=== PATIENT | female | born 1995 | race Asian ===

== ENCOUNTER 2018-03-24 09:07 | Inpatient (IN) | payer BC, OTHER ==
[~2018-03-24] VITALS: Ht 157.5 cm; Wt 42.7 kg
[2018-03-24 09:25] LABS: BASOPHILS # (AUTO) 0.03 x10^3/uL (0-0.1); BASOPHILS % (AUTO) 0 % (0-1); EOSINOPHILS # (AUTO) 0.05 x10^3/uL (0-0.4); EOSINOPHILS % (AUTO) 1 % (1-7); LYMPHOCYTES # (AUTO) 2.59 x10^3/uL (1-3.4); LYMPHOCYTES % (AUTO) 37 % (22-44); MD NO; MEAN CORPUSCULAR HEMOGLOBIN 30.9 pg (27.0-34.8); MEAN CORPUSCULAR HGB CONC 34.6 g/dL (32.4-35.8); MEAN CORPUSCULAR VOLUME 89.2 fL (80-100); MEAN PLATELET VOLUME 8.7 fL (7.4-10.4); MONOCYTES # (AUTO) 0.22 x10^3/uL (0.2-0.8); MONOCYTES % (AUTO) 3 % (2-9); NEUTROPHILS % (AUTO) 59 % (42-75); PLATELET COUNT 325 x10^3/uL (130-400); RED BLOOD COUNT 5.41 x10^6/uL (3.82-5.3); RED CELL DISTRIBUTION WIDTH 12.6 % (9.6-15.2)
[2018-03-24 09:41] LABS: ALANINE AMINOTRANSFERASE 22 U/L (12-78); ALBUMIN 4.4 g/dL (3.4-5.0); ANION GAP 8 mmol/L (5-15); CALCIUM 8.9 mg/dL (8.5-10.1); CHLORIDE 108 mmol/L (98-107); SALICYLATE LEVEL < 1.7 mg/dL (2.8-20.0)
[2018-03-24 09:42] LABS: ACETAMINOPHEN < 2 mcg/mL (10-30)
[2018-03-24 09:45] LABS: ALKALINE PHOSPHATASE 50 U/L (45-117); BILIRUBIN,TOTAL 0.7 mg/dL (0.2-1.0); TOTAL PROTEIN 8.7 g/dL (6.4-8.2)
[2018-03-24 11:26] LABS: AMPHETAMINE SCREEN, URINE Negative (Negative); BARBITURATE SCREEN, URINE Positive (Negative); BENZODIAZEPINE SCREEN, URINE Positive (Negative); CANNABINOID SCREEN, URINE Negative (Negative); COCAINE SCREEN, URINE Negative (Negative); METHADONE SCREEN, URINE Negative (Negative); OPIATE SCREEN, URINE Negative (Negative)
[2018-03-24] MEDS: SODIUM CHLORIDE 0.9% 1,000 ML IV SCH ×2 (14:14→19:08)
[2018-03-24] MEDS ORDERED: ERGOCALCIFEROL 50,000 UNIT CAPSULE PO SCH (14:30)
[2018-03-24] MEDS ORDERED: ONDANSETRON 2MG/ML, 2ML IVPush PRN (14:30)
[2018-03-24 14:59] LABS: FREE T4 (FREE THYROXINE) 1.14 ng/dL (0.76-1.46); THYROID STIMULATING HORMONE 3.82 mIU/L (0.358-3.740)
[2018-03-25 01:45] VITALS: BP 102/66
[2018-03-25] MEDS ORDERED: NORG1TAB6 PO (05:28)
[2018-03-25] MEDS ORDERED: ERGO500017 PO (05:28)
[2018-03-25 06:00] LABS: CHLORIDE 112 mmol/L (98-107)
[2018-03-25 06:09] LABS: ANION GAP 7 mmol/L (5-15); CALCIUM 8.6 mg/dL (8.5-10.1); CREATININE 0.66 mg/dL (0.55-1.02)
[2018-03-25 06:10] LABS: ALANINE AMINOTRANSFERASE 15 U/L (12-78); ALBUMIN 3.4 g/dL (3.4-5.0); ALKALINE PHOSPHATASE 33 U/L (45-117); BILIRUBIN,TOTAL 0.5 mg/dL (0.2-1.0); TOTAL PROTEIN 6.6 g/dL (6.4-8.2)
[2018-03-25 09:46] VITALS: BP 94/54
[2018-03-25] MEDS: SODIUM CHLORIDE 0.9% 1,000 ML IV SCH (12:41)
[2018-03-25] MEDS: CETIRIZINE 10 MG TABLET PO SCH (12:44)
[2018-03-25 15:22] VITALS: BP 95/60
[2018-03-25 18:38] VITALS: BP 105/69
[2018-03-26 01:36] VITALS: BP 99/64
[2018-03-26] MEDS: SODIUM CHLORIDE 0.9% 1,000 ML IV SCH ×3 (01:58→22:00)
[2018-03-26 06:03] LABS: ANION GAP 7 mmol/L (5-15); CHLORIDE 113 mmol/L (98-107)
[2018-03-26 06:06] LABS: ALANINE AMINOTRANSFERASE 16 U/L (12-78); ALKALINE PHOSPHATASE 43 U/L (45-117); BASOPHILS # (AUTO) 0.04 x10^3/uL (0-0.1); BASOPHILS % (AUTO) 1 % (0-1); BILIRUBIN,TOTAL 0.5 mg/dL (0.2-1.0); CREATININE 0.52 mg/dL (0.55-1.02); EOSINOPHILS # (AUTO) 0.17 x10^3/uL (0-0.4); EOSINOPHILS % (AUTO) 3 % (1-7); LYMPHOCYTES # (AUTO) 2.55 x10^3/uL (1-3.4); LYMPHOCYTES % (AUTO) 42 % (22-44); MD NO; MEAN CORPUSCULAR HEMOGLOBIN 31.1 pg (27.0-34.8); MEAN CORPUSCULAR HGB CONC 34.2 g/dL (32.4-35.8); MEAN CORPUSCULAR VOLUME 90.9 fL (80-100); MEAN PLATELET VOLUME 8.4 fL (7.4-10.4); MONOCYTES # (AUTO) 0.41 x10^3/uL (0.2-0.8); MONOCYTES % (AUTO) 7 % (2-9); NEUTROPHILS # (AUTO) 2.88 x10^3/uL (1.8-6.8); NEUTROPHILS % (AUTO) 48 % (42-75); PLATELET COUNT 286 x10^3/uL (130-400); RED BLOOD COUNT 4.26 x10^6/uL (3.82-5.3); RED CELL DISTRIBUTION WIDTH 12.8 % (9.6-15.2); TOTAL PROTEIN 6.1 g/dL (6.4-8.2)
[2018-03-26 08:51] VITALS: BP 100/62
[2018-03-26] MEDS: CETIRIZINE 10 MG TABLET PO SCH (09:01)
[2018-03-26 14:32] VITALS: BP 100/65
[2018-03-26 20:09] VITALS: BP 129/81
[2018-03-26] MEDS: NORGESTIMATE-ETHINYL ESTRADIOL TABLET PO SCH (21:17)
[2018-03-27 03:53] VITALS: BP_SYST 105; BP_SYST 128; BP_DIAS 66; BP_DIAS 75
[2018-03-27 07:15] VITALS: BP 111/70
[2018-03-27] MEDS: SODIUM CHLORIDE 0.9% 1,000 ML IV SCH ×2 (07:37→20:20)
[2018-03-27] MEDS: CETIRIZINE 10 MG TABLET PO SCH (10:16)
[2018-03-27 13:03] VITALS: BP 121/81
[2018-03-27] MEDS: NORGESTIMATE-ETHINYL ESTRADIOL TABLET PO SCH (20:19)
[2018-03-27 20:34] VITALS: BP 112/71
[2018-03-28 02:31] VITALS: BP 98/64
[2018-03-28] MEDS: SODIUM CHLORIDE 0.9% 1,000 ML IV SCH (06:16)
[2018-03-28 07:31] VITALS: BP_SYST 66
[2018-03-28] MEDS: CETIRIZINE 10 MG TABLET PO SCH (09:37)
[2018-03-28 13:48] VITALS: BP 106/69
[2018-03-28 20:18] VITALS: BP 102/68
[2018-03-28] MEDS: NORGESTIMATE-ETHINYL ESTRADIOL TABLET PO SCH (21:52)
[2018-03-29 00:22] VITALS: BP 98/63
[2018-03-29 08:40] VITALS: BP 99/63
[2018-03-29] MEDS: CETIRIZINE 10 MG TABLET PO SCH (09:01)
[2018-03-29 13:52] VITALS: BP 116/80
== END 2018-03-29 17:24 | disposition home or self-care (01) | DRG 918 ==
LOC: ED 11:32 → EDIP 11:33 → SUATTDRO 12:40 → ED 13:24 → 4EST 03-25 00:26 → DCLOUNGE 03-29 16:59
PROVIDERS: ADMIT Internal Medicine; ATTEND Internal Medicine
DX: T48.1X2A Poisoning by skeletal muscle relaxants [neuromuscular blocking agents], intentional self-harm, initial encounter (principal); D75.1 Secondary polycythemia; E55.9 Vitamin D deficiency, unspecified; F32.9 Major depressive disorder, single episode, unspecified; F41.9 Anxiety disorder, unspecified; J30.2 Other seasonal allergic rhinitis; T39.1X2A Poisoning by 4-Aminophenol derivatives, intentional self-harm, initial encounter; Y92.89 Other specified places as the place of occurrence of the external cause; Z80.0 Family history of malignant neoplasm of digestive organs; Z80.3 Family history of malignant neoplasm of breast
CPT/HCPCS: 36415; 70450; 71045; 80053; 80307; 80329; 82140; 84439; 84443; 84703; 85025; 93005; 99285; G0480; J7030